=== PATIENT | female | born 1965 | race Caucasian/White ===

== ENCOUNTER 2019-05-09 09:55 | Inpatient (IN) ==
[2019-05-09] MEDS ORDERED: Isovue-370 500 ML BOTTLE IVP ONE (10:01)
[2019-05-09] MEDS ORDERED: Aspirin 81 MG TAB.CHEW PO ONE (10:01)
[2019-05-09] MEDS ORDERED: methylPREDNISolone 125 MG/2 ML VIAL IVP ONE (10:01)
[2019-05-09] MEDS: Nitroglycerin 0.4 MG TAB.SUBL SL PRN ×2 (10:14→10:29)
[2019-05-09 10:20] LABS: Basophils % 0.3 %; Hematocrit 35.8 % (35.3-44.9); Hemoglobin 12.1 g/dL (11.5-15.4); Lymphocytes # 2.3 K/mcL (0.6-4.6); Lymphocytes % 27.1 %; Mean Corpuscular HGB Conc 33.8 g/dL (31.6-35.5); Mean Corpuscular Volume 91.8 fL (83.0-100.0); Mean Platelet Volume 10.7 fL (9.4-12.4); Monocytes # 0.6 K/mcL (0.0-1.3); Monocytes % 6.4 %; Neutrophils # 5.6 K/mcL (1.6-8.9); Platelet Count 223 K/mcL (140-400); Red Cell Distribution Width 12.5 % (11.5-14.5); Segmented Neutrophils % 64.2 %; White Blood Count 8.7 K/mcL (4.3-11.1)
[2019-05-09 10:48] LABS: BUN/Creatinine Ratio 22 (6-26); Blood Urea Nitrogen 29 mg/dL (6-20); Calcium 9.5 mg/dL (8.6-10.3); Carbon Dioxide 22 mEq/L (23-29); Chloride 104 mEq/L (98-107); Glucose 161 mg/dL (70-105); Osmolality,Calculated 295 (280-300); Sodium 138 mEq/L (136-145); Troponin I < 0.03 ng/mL (< 0.04); eGFR For African Americans 51 (> 60); eGFR For Non-African Americans 42 (> 60)
[2019-05-09] MEDS ORDERED: Ondansetron 4 MG/2 ML VIAL IVP ONE (10:56)
[2019-05-09] MEDS ORDERED: 0.9 % Sodium Chloride 1,000 ML IVC ONE (11:09)
[2019-05-09] MEDS ORDERED: Azithromycin 500 MG in D5% in Water 250 ML IVPB ONE (12:07)
[2019-05-09] MEDS ORDERED: cefTRIAXone 1,000 MG in Water for inj. (sterile) 10 ML IVP ONE (12:07)
[2019-05-09 12:28] LABS: Alanine Aminotransferase 8 Units/L (7-52); Albumin 4.1 g/dL (3.5-5.7); Albumin/Globulin Ratio 1.3 (1.1-2.2); Alkaline Phosphatase 148 Units/L (34-104); Aspartate Amino Transferase 10 Units/L (13-39); Bilirubin,Indirect 0.3 mg/dL (0.0-1.2); Bilirubin,Total 0.3 mg/dL (0.3-1.0); Globulin 3.2 g/dL (2.4-3.5); Total Protein 7.3 g/dL (6.4-8.9)
[2019-05-09 12:30] LABS: INR 0.9; Prothrombin Time 10.2 Seconds (9.4-12.1)
[2019-05-09 12:34] LABS: Bilirubin,Urine Negative (Negative); Blood,Urine Negative (Negative); Clarity,Urine Clear (Clear); Color,Urine Yellow (Yellow); Glucose,Urine (UA) Normal (Normal); Ketones,Urine Negative (Negative); Leukocyte Esterase,Urine Negative (Negative); Nitrite,Urine Negative (Negative); Protein,Urine 100 mg/dL (Neg-Trace); Specific Gravity,Urine 1.028 (1.010-1.025); Urobilinogen,Urine Normal (Normal)
[2019-05-09 12:37] LABS: Bacteria,Urine None Seen per hpf (None-Few); Hyaline Casts,Urine None Seen per lpf (None-Few); Squamous Epithelial Cell,Urine Many per lpf (None-Few); WBC,Urine 0-3 per hpf (0-3)
[2019-05-09] MEDS ORDERED: *HR* Promethazine 25 MG/ML VIAL IVP ONE (13:01)
[2019-05-09] MEDS ORDERED: Naloxone 0.4 MG/ML INJ IVP PRN (14:30)
[2019-05-09] MEDS ORDERED: SUMAtriptan 6 MG/0.5 ML SQ PRN ×2 (14:33→15:36)
[2019-05-09] MEDS ORDERED: *HR* Dextrose 50 % in Water (Syg) 50 ML SYRINGE IVP PRN (14:35)
[2019-05-09] MEDS ORDERED: D5% in Water 1,000 ML IVC PRN (14:35)
[2019-05-09] MEDS ORDERED: Dextrose Gel 15 GM/37.5 ML TUBE PO PRN ×2 (14:35)
[2019-05-09] MEDS ORDERED: VALACYCLOVIR HCL 1000 MG PO SCH (14:45)
[2019-05-09] MEDS ORDERED: tiZANidine 4 MG TABLET PO SCH (15:00)
[2019-05-09 15:28] LABS: Estimated Average Glucose 151 mg/dl
[2019-05-09] MEDS: Ondansetron ODT 4 MG TAB.RAPDIS PO SCH ×2 (15:48→23:24)
[2019-05-09] MEDS: Nystatin SUSP 5 ML UD.LIQ PO SCH ×2 (16:52→21:10)
[2019-05-09] MEDS: tiZANidine 4 MG TABLET PO PRN (16:52)
[2019-05-09] MEDS: diazePAM 5 MG TABLET PO PRN ×2 (16:52→23:25)
[2019-05-09] MEDS: Doxycycline 100 MG in 0.9 % Sodium Chloride Mini Bag 100 ML IVPB SCH (16:52)
[2019-05-09] MEDS: Insulin LISPRO 300 UNITS/3 ML VIAL SQ SCH ×2 (16:56→21:10)
[2019-05-09] MEDS ORDERED: Nystatin SUSP 5 ML UD.LIQ PO SCH (17:00)
[2019-05-09] MEDS ORDERED: diazePAM 10 MG TABLET PO SCH (17:00)
[2019-05-09 19:36] LABS: Adenovirus Not Detected (Not Detect); Bordetella Pertussis Not Detected (Not Detect); Chlamydophila pneumoniae Not Detected (Not Detect); Coronavirus 229E Not Detected (Not Detect); Coronavirus HKU1 Not Detected (Not Detect); Coronavirus NL63 Not Detected (Not Detect); Coronavirus OC43 Not Detected (Not Detect); Human Metapneumovirus Not Detected (Not Detect); Human Rhinovirus/Enterovirus Not Detected (Not Detect); Influenza A Subtype 2009 H1 Not Detected (Not Detect); Influenza B Not Detected (Not Detect); Mycoplasma pneumoniae Not Detected (Not Detect); Parainfluenza Virus 1 Not Detected (Not Detect); Parainfluenza Virus 2 Not Detected (Not Detect); Parainfluenza Virus 3 Not Detected (Not Detect); Parainfluenza Virus 4 Not Detected (Not Detect); Respiratory Syncytial Virus Not Detected (Not Detect)
[2019-05-09] MEDS ORDERED: Perflutren Lipid Microsphere 1.3 ML in 0.9 % Sodium Chloride 8.7 ML IVP ONE (20:26)
[2019-05-09] MEDS ORDERED: Acetaminophen 325 MG TABLET PO PRN (21:07)
[2019-05-09] MEDS: Topiramate 100 MG TABLET PO SCH (21:09)
[2019-05-09] MEDS: Insulin DETEMIR 100 UNIT/ML X5UNITS SQ SCH (21:10)
[2019-05-10 03:46] LABS: Basophils % 0.3 %; Hematocrit 31.9 % (35.3-44.9); Hemoglobin 10.7 g/dL (11.5-15.4); Immature Granulocytes % 1.9 % (0-4); Lymphocytes # 2.1 K/mcL (0.6-4.6); Lymphocytes % 21.9 %; Mean Corpuscular HGB Conc 33.5 g/dL (31.6-35.5); Mean Corpuscular Volume 92.5 fL (83.0-100.0); Mean Platelet Volume 11.1 fL (9.4-12.4); Monocytes # 0.7 K/mcL (0.0-1.3); Monocytes % 7.2 %; Neutrophils # 6.4 K/mcL (1.6-8.9); Platelet Count 194 K/mcL (140-400); Red Blood Count 3.45 M/mcL (3.82-4.97); Red Cell Distribution Width 12.3 % (11.5-14.5); Segmented Neutrophils % 68.7 %; White Blood Count 9.4 K/mcL (4.3-11.1)
[2019-05-10 03:53] LABS: Calcium 9.1 mg/dL (8.6-10.3); Potassium 3.8 mEq/L (3.5-5.1)
[2019-05-10] MEDS: diazePAM 5 MG TABLET PO PRN ×3 (05:18→18:17)
[2019-05-10] MEDS: Doxycycline 100 MG in 0.9 % Sodium Chloride Mini Bag 100 ML IVPB SCH ×2 (05:18→17:19)
[2019-05-10] MEDS: tiZANidine 4 MG TABLET PO PRN ×2 (05:18→20:59)
[2019-05-10] MEDS: Cholecalciferol (D-3) 1,000 UNIT (25MCG) TABLET PO SCH (08:10)
[2019-05-10] MEDS: Aspirin Enteric Coated 81 MG Tablet PO SCH (08:11)
[2019-05-10] MEDS: Folic Acid 1 MG TABLET PO SCH (08:11)
[2019-05-10] MEDS: Fenofibrate 54 MG TABLET PO SCH (08:11)
[2019-05-10] MEDS: Topiramate 100 MG TABLET PO SCH ×2 (08:11→20:50)
[2019-05-10] MEDS: Insulin LISPRO 300 UNITS/3 ML VIAL SQ SCH ×4 (08:12→21:01)
[2019-05-10] MEDS: Ondansetron ODT 4 MG TAB.RAPDIS PO SCH ×2 (08:12→17:11)
[2019-05-10] MEDS: cefTRIAXone 1,000 MG in Water for inj. (sterile) 10 ML IVP SCH (08:12)
[2019-05-10] MEDS: Insulin DETEMIR 100 UNIT/ML X5UNITS SQ SCH ×2 (08:12→21:00)
[2019-05-10] MEDS: Nystatin SUSP 5 ML UD.LIQ PO SCH ×4 (08:12→20:53)
[2019-05-10] MEDS: Fluticasone Propionate Nasal 50 MCG/SPRAY BOTTLE NS SCH (10:08)
[2019-05-10] MEDS: Ringers Solution, Lactated 1,000 ML IVC SCH ×3 (10:08→23:09)
[2019-05-10] MEDS: predniSONE 20 MG TABLET PO SCH (11:57)
[2019-05-10] MEDS: Gabapentin 300 MG CAPSULE PO SCH ×2 (14:25→20:50)
[2019-05-10] MEDS: *HR* Heparin 5,000 UNIT/ML VIAL SQ SCH (17:12)
[2019-05-11 00:48] LABS: Basophils % 0.2 %; Hematocrit 31.9 % (35.3-44.9); Hemoglobin 10.6 g/dL (11.5-15.4); Lymphocytes # 1.9 K/mcL (0.6-4.6); Lymphocytes % 21.2 %; Mean Corpuscular HGB Conc 33.2 g/dL (31.6-35.5); Mean Corpuscular Hemoglobin 30.9 pg (28.0-33.3); Monocytes # 0.6 K/mcL (0.0-1.3); Monocytes % 6.2 %; Neutrophils # 6.4 K/mcL (1.6-8.9); Platelet Count 191 K/mcL (140-400); Red Blood Count 3.43 M/mcL (3.82-4.97); Segmented Neutrophils % 70.4 %; White Blood Count 9.1 K/mcL (4.3-11.1)
[2019-05-11 01:08] LABS: Calcium 8.7 mg/dL (8.6-10.3); Potassium 4.1 mEq/L (3.5-5.1)
[2019-05-11] MEDS: Ondansetron ODT 4 MG TAB.RAPDIS PO SCH ×3 (03:06→16:07)
[2019-05-11] MEDS: *HR* Heparin 5,000 UNIT/ML VIAL SQ SCH ×2 (06:00→17:24)
[2019-05-11] MEDS: Doxycycline 100 MG in 0.9 % Sodium Chloride Mini Bag 100 ML IVPB SCH (06:00)
[2019-05-11] MEDS: Ringers Solution, Lactated 1,000 ML IVC SCH (07:09)
[2019-05-11] MEDS: Insulin DETEMIR 100 UNIT/ML X5UNITS SQ SCH (08:11)
[2019-05-11] MEDS: Fluticasone Propionate Nasal 50 MCG/SPRAY BOTTLE NS SCH (08:12)
[2019-05-11] MEDS: cefTRIAXone 1,000 MG in Water for inj. (sterile) 10 ML IVP SCH (08:12)
[2019-05-11] MEDS: Insulin LISPRO 300 UNITS/3 ML VIAL SQ SCH ×5 (08:13→21:12)
[2019-05-11] MEDS: Nystatin SUSP 5 ML UD.LIQ PO SCH ×4 (08:15→21:08)
[2019-05-11] MEDS: Aspirin Enteric Coated 81 MG Tablet PO SCH (08:16)
[2019-05-11] MEDS: Gabapentin 300 MG CAPSULE PO SCH ×3 (08:16→21:09)
[2019-05-11] MEDS: Cholecalciferol (D-3) 1,000 UNIT (25MCG) TABLET PO SCH (08:16)
[2019-05-11] MEDS: predniSONE 20 MG TABLET PO SCH (08:16)
[2019-05-11] MEDS: amLODIPine 5 MG TABLET PO SCH (08:16)
[2019-05-11] MEDS: Fenofibrate 54 MG TABLET PO SCH (08:16)
[2019-05-11] MEDS: Topiramate 100 MG TABLET PO SCH ×2 (08:16→21:09)
[2019-05-11] MEDS: Folic Acid 1 MG TABLET PO SCH (08:16)
[2019-05-11] MEDS: diazePAM 5 MG TABLET PO PRN ×3 (08:21→23:15)
[2019-05-11] MEDS: tiZANidine 4 MG TABLET PO PRN ×2 (11:54→21:10)
[2019-05-11] MEDS: 0.9 % Sodium Chloride 1,000 ML IVC SCH ×2 (12:02→23:15)
[2019-05-11 13:52] LABS: Bilirubin,Urine Negative (Negative); Blood,Urine Negative (Negative); Clarity,Urine Clear (Clear); Color,Urine Yellow (Yellow); Glucose,Urine (UA) Normal (Normal); Ketones,Urine Negative (Negative); Leukocyte Esterase,Urine Negative (Negative); Nitrite,Urine Negative (Negative); PH,Urine 6.5 pH Units (5.0-8.0); Protein,Urine 30 mg/dL (Neg-Trace); Urobilinogen,Urine Normal (Normal)
[2019-05-11 13:55] LABS: Bacteria,Urine None Seen per hpf (None-Few); Hyaline Casts,Urine None Seen per lpf (None-Few); Squamous Epithelial Cell,Urine Moderate per lpf (None-Few); WBC,Urine 0-3 per hpf (0-3)
[2019-05-11 14:00] LABS: Protein/Creatinine Ratio,Urine 0.74 mg/mg (0.00-0.20); Sodium, Urine 113.1 mEq/L
[2019-05-11] MEDS ORDERED: Insulin Human Regular 10 UNIT in 0.9 % Sodium Chloride 10 ML IV ONE (15:29)
[2019-05-11] MEDS ORDERED: Insulin DETEMIR 100 UNIT/ML X5UNITS SQ SCH (21:00)
[2019-05-11] MEDS: Cefdinir 300 MG CAPSULE PO SCH (21:09)
[2019-05-11] MEDS: Doxycycline 100 MG CAPSULE PO SCH (21:10)
[2019-05-12 02:58] LABS: Basophils % 0.2 %; Eosinophils % 0.1 %; Hematocrit 30.6 % (35.3-44.9); Hemoglobin 10.2 g/dL (11.5-15.4); Immature Granulocytes % 2.7 % (0-4); Lymphocytes # 2.5 K/mcL (0.6-4.6); Lymphocytes % 27.9 %; Mean Corpuscular HGB Conc 33.3 g/dL (31.6-35.5); Mean Corpuscular Hemoglobin 31.2 pg (28.0-33.3); Mean Corpuscular Volume 93.6 fL (83.0-100.0); Mean Platelet Volume 11.1 fL (9.4-12.4); Monocytes # 0.5 K/mcL (0.0-1.3); Monocytes % 5.7 %; Neutrophils # 5.6 K/mcL (1.6-8.9); Platelet Count 186 K/mcL (140-400); Red Blood Count 3.27 M/mcL (3.82-4.97); Red Cell Distribution Width 11.9 % (11.5-14.5); Segmented Neutrophils % 63.4 %; White Blood Count 8.8 K/mcL (4.3-11.1)
[2019-05-12 03:20] LABS: Calcium 8.7 mg/dL (8.6-10.3)
[2019-05-12 03:25] LABS: Albumin 3.6 g/dL (3.5-5.7); Magnesium 1.9 mg/dL (1.6-2.6); Phosphorous 2.9 mg/dL (2.7-4.5); Uric Acid 7.9 mg/dL (2.3-7.6)
[2019-05-12 04:50] LABS: Complement C3 144 mg/dL (87-200)
[2019-05-12] MEDS: Ondansetron ODT 4 MG TAB.RAPDIS PO SCH ×4 (05:31→23:42)
[2019-05-12] MEDS: *HR* Heparin 5,000 UNIT/ML VIAL SQ SCH ×2 (05:31→17:46)
[2019-05-12] MEDS: Fluticasone Propionate Nasal 50 MCG/SPRAY BOTTLE NS SCH (08:19)
[2019-05-12] MEDS: Insulin LISPRO 300 UNITS/3 ML VIAL SQ SCH ×7 (08:20→20:59)
[2019-05-12] MEDS: Cholecalciferol (D-3) 1,000 UNIT (25MCG) TABLET PO SCH (08:22)
[2019-05-12] MEDS: Nystatin SUSP 5 ML UD.LIQ PO SCH ×4 (08:22→20:57)
[2019-05-12] MEDS: Doxycycline 100 MG CAPSULE PO SCH ×2 (08:22→20:57)
[2019-05-12] MEDS: Topiramate 100 MG TABLET PO SCH ×2 (08:23→20:58)
[2019-05-12] MEDS: Folic Acid 1 MG TABLET PO SCH (08:23)
[2019-05-12] MEDS: predniSONE 20 MG TABLET PO SCH (08:23)
[2019-05-12] MEDS: Aspirin Enteric Coated 81 MG Tablet PO SCH (08:23)
[2019-05-12] MEDS: amLODIPine 5 MG TABLET PO SCH (08:23)
[2019-05-12] MEDS: Cefdinir 300 MG CAPSULE PO SCH ×2 (08:23→20:57)
[2019-05-12] MEDS: Gabapentin 300 MG CAPSULE PO SCH ×3 (08:23→20:58)
[2019-05-12] MEDS: diazePAM 5 MG TABLET PO PRN ×3 (08:32→20:58)
[2019-05-12] MEDS: Insulin DETEMIR 100 UNIT/ML X5UNITS SQ SCH ×2 (09:59→20:58)
[2019-05-12] MEDS ORDERED: *HR* HYDROcodone/Acet 5/325 mg TABLET PO ONE (18:54)
[2019-05-12] MEDS ORDERED: *HR* HYDROcodone/Acet 5/325 mg TABLET PO STA (18:57)
[2019-05-13] MEDS: diazePAM 5 MG TABLET PO PRN ×4 (01:00→21:26)
[2019-05-13] MEDS: *HR* Heparin 5,000 UNIT/ML VIAL SQ SCH ×2 (05:39→18:51)
[2019-05-13] MEDS ORDERED: Acetaminophen IV 500 MG/50 ML INFUS..BTL IVPB ONE (06:07)
[2019-05-13 06:55] LABS: Basophils # 0.1 K/mcL (0.0-0.2); Basophils % 0.5 %; Eosinophils % 0.1 %; Hematocrit 31.4 % (35.3-44.9); Hemoglobin 10.3 g/dL (11.5-15.4); Immature Granulocytes % 4.3 % (0-4); Lymphocytes # 3.3 K/mcL (0.6-4.6); Lymphocytes % 30.2 %; Mean Corpuscular HGB Conc 32.8 g/dL (31.6-35.5); Mean Corpuscular Volume 91.5 fL (83.0-100.0); Mean Platelet Volume 11.2 fL (9.4-12.4); Monocytes # 0.7 K/mcL (0.0-1.3); Neutrophils # 6.4 K/mcL (1.6-8.9); Platelet Count 208 K/mcL (140-400); Red Blood Count 3.43 M/mcL (3.82-4.97); Red Cell Distribution Width 12.3 % (11.5-14.5); Segmented Neutrophils % 58.9 %; White Blood Count 10.8 K/mcL (4.3-11.1)
[2019-05-13 07:17] LABS: Calcium 8.7 mg/dL (8.6-10.3)
[2019-05-13] MEDS: Nystatin SUSP 5 ML UD.LIQ PO SCH ×4 (07:39→21:26)
[2019-05-13] MEDS: Cefdinir 300 MG CAPSULE PO SCH ×2 (07:39→21:27)
[2019-05-13] MEDS: Folic Acid 1 MG TABLET PO SCH (07:40)
[2019-05-13] MEDS: Topiramate 100 MG TABLET PO SCH ×2 (07:40→21:27)
[2019-05-13] MEDS: Gabapentin 300 MG CAPSULE PO SCH ×3 (07:40→21:27)
[2019-05-13] MEDS: Aspirin Enteric Coated 81 MG Tablet PO SCH (07:40)
[2019-05-13] MEDS: predniSONE 20 MG TABLET PO SCH (07:41)
[2019-05-13] MEDS: amLODIPine 5 MG TABLET PO SCH (07:41)
[2019-05-13] MEDS: Ondansetron ODT 4 MG TAB.RAPDIS PO SCH ×2 (07:41→16:49)
[2019-05-13] MEDS: Doxycycline 100 MG CAPSULE PO SCH ×2 (07:42→21:26)
[2019-05-13] MEDS: Insulin LISPRO 300 UNITS/3 ML VIAL SQ SCH ×7 (07:44→21:59)
[2019-05-13] MEDS: Fluticasone Propionate Nasal 50 MCG/SPRAY BOTTLE NS SCH (07:44)
[2019-05-13] MEDS: Insulin DETEMIR 100 UNIT/ML X5UNITS SQ SCH ×2 (07:48→21:58)
[2019-05-13] MEDS: Cholecalciferol (D-3) 1,000 UNIT (25MCG) TABLET PO SCH (08:08)
[2019-05-13] MEDS ORDERED: Metoclopramide 10 MG/2 ML VIAL IVP ONE (10:37)
[2019-05-13] MEDS: Acetaminophen 325 MG TABLET PO PRN ×2 (10:37→16:49)
[2019-05-13] MEDS: tiZANidine 4 MG TABLET PO PRN (11:35)
[2019-05-13] MEDS: Albuterol 2.5 MG/3 ML NEBULIZER IH SCH ×3 (16:20→23:31)
[2019-05-13] MEDS ORDERED: *HR* HYDROcodone/Acet 5/325 mg TABLET PO ONE (17:45)
[2019-05-13 19:59] LABS: Kappa Qnt Free Light Chains 3.92 mg/dL (0.33-1.94); Lambda Qnt Free Light Chains 2.6 mg/dL (0.57-2.63)
[2019-05-13] MEDS: tiZANidine 4 MG TABLET PO SCH (21:26)
[2019-05-14] MEDS: Albuterol 2.5 MG/3 ML NEBULIZER IH SCH ×5 (03:39→19:49)
[2019-05-14] MEDS: diazePAM 5 MG TABLET PO PRN ×4 (03:46→21:46)
[2019-05-14] MEDS: Ondansetron ODT 4 MG TAB.RAPDIS PO SCH ×4 (03:48→23:29)
[2019-05-14] MEDS: *HR* Heparin 5,000 UNIT/ML VIAL SQ SCH ×2 (03:50→17:53)
[2019-05-14 06:21] LABS: Basophils % 0.3 %; Eosinophils % 0.2 %; Hematocrit 30.8 % (35.3-44.9); Hemoglobin 10.2 g/dL (11.5-15.4); Immature Granulocytes % 4.8 % (0-4); Lymphocytes # 3.2 K/mcL (0.6-4.6); Lymphocytes % 30.1 %; Mean Corpuscular HGB Conc 33.1 g/dL (31.6-35.5); Mean Corpuscular Hemoglobin 30.9 pg (28.0-33.3); Mean Corpuscular Volume 93.3 fL (83.0-100.0); Mean Platelet Volume 11.3 fL (9.4-12.4); Monocytes # 0.7 K/mcL (0.0-1.3); Monocytes % 6.5 %; Neutrophils # 6.3 K/mcL (1.6-8.9); Platelet Count 200 K/mcL (140-400); Red Cell Distribution Width 12.4 % (11.5-14.5); Segmented Neutrophils % 58.1 %; White Blood Count 10.8 K/mcL (4.3-11.1)
[2019-05-14 06:43] LABS: BUN/Creatinine Ratio 20 (6-26); Blood Urea Nitrogen 45 mg/dL (6-20); Carbon Dioxide 24 mEq/L (23-29); Chloride 108 mEq/L (98-107); Glucose 206 mg/dL (70-105); Osmolality,Calculated 312 (280-300); Potassium 3.8 mEq/L (3.5-5.1); Sodium 142 mEq/L (136-145); eGFR For African Americans 27 (> 60); eGFR For Non-African Americans 22 (> 60)
[2019-05-14] MEDS: Insulin DETEMIR 100 UNIT/ML X5UNITS SQ SCH ×2 (08:02→21:45)
[2019-05-14] MEDS: Insulin LISPRO 300 UNITS/3 ML VIAL SQ SCH ×7 (08:03→21:45)
[2019-05-14] MEDS: Nystatin SUSP 5 ML UD.LIQ PO SCH ×4 (08:04→21:46)
[2019-05-14] MEDS: Fluticasone Propionate Nasal 50 MCG/SPRAY BOTTLE NS SCH (08:10)
[2019-05-14] MEDS: predniSONE 20 MG TABLET PO SCH (08:12)
[2019-05-14] MEDS: Doxycycline 100 MG CAPSULE PO SCH ×2 (08:14→21:46)
[2019-05-14] MEDS: Cholecalciferol (D-3) 1,000 UNIT (25MCG) TABLET PO SCH (08:14)
[2019-05-14] MEDS: Topiramate 100 MG TABLET PO SCH ×2 (08:15→21:45)
[2019-05-14] MEDS: Folic Acid 1 MG TABLET PO SCH (08:15)
[2019-05-14] MEDS: amLODIPine 5 MG TABLET PO SCH (08:15)
[2019-05-14] MEDS: tiZANidine 4 MG TABLET PO SCH ×3 (08:15→21:45)
[2019-05-14] MEDS: Cefdinir 300 MG CAPSULE PO SCH ×2 (08:36→21:45)
[2019-05-14] MEDS: Gabapentin 400 MG CAPSULE PO SCH ×3 (08:36→21:46)
[2019-05-14] MEDS: Acetaminophen 325 MG TABLET PO PRN (10:04)
[2019-05-14 10:19] LABS: Rheumatoid Factor 12 IU/mL (Less than 14)
[2019-05-14 10:43] LABS: ANA IgG by ELISA DETECTED (None Detected)
[2019-05-14 10:44] LABS: GBM IgG Multiplex Bead Assay 0 AU/mL (0-19); Glomerular Basement Memb IgG NEGATIVE (Negative); Serine Protease-3 Antibody 14 AU/mL (0-19)
[2019-05-14 11:01] LABS: Alpha 2 Globulin (PEP) 0.91 g/dL (0.48-1.05)
[2019-05-14 11:02] LABS: Amylase 22 Units/L (29-103); C-Reactive Protein < 5 mg/L (Less than 10); Lipase 25 Units/L (11-82)
[2019-05-14 11:11] LABS: Hepatitis B Surface Antigen Nonreactive (Nonreactive)
[2019-05-14 11:40] LABS: Hepatitis B Core IgM Nonreactive (Nonreactive)
[2019-05-14 11:41] LABS: Hepatitis C Virus Antibody Nonreactive (Nonreactive)
[2019-05-14 11:42] LABS: Hepatitis A Antibody IgM Nonreactive (Nonreactive)
[2019-05-14 13:42] LABS: IFE Reflexed NOT DONE
[2019-05-14] MEDS ORDERED: methylPREDNISolone 125 MG/2 ML VIAL IVP SCH (14:45)
[2019-05-15] MEDS: Albuterol 2.5 MG/3 ML NEBULIZER IH SCH ×6 (00:05→19:29)
[2019-05-15 01:01] LABS: Hematocrit 32.6 % (35.3-44.9); Hemoglobin 11.1 g/dL (11.5-15.4); Mean Corpuscular Volume 91.1 fL (83.0-100.0); Mean Platelet Volume 11.4 fL (9.4-12.4); Platelet Count 213 K/mcL (140-400); Red Blood Count 3.58 M/mcL (3.82-4.97); Red Cell Distribution Width 12.2 % (11.5-14.5)
[2019-05-15 01:13] LABS: Prothrombin Time 11.4 Seconds (9.4-12.1)
[2019-05-15 01:25] LABS: Lymphocytes # 0.6 K/mcL (0.6-4.6); Neutrophils # 9.2 K/mcL (1.6-8.9)
[2019-05-15 02:25] LABS: Albumin 3.9 g/dL (3.5-5.7); Albumin/Globulin Ratio 1.4 (1.1-2.2); Bilirubin,Total 0.2 mg/dL (0.3-1.0); Calcium 8.9 mg/dL (8.6-10.3); Globulin 2.8 g/dL (2.4-3.5); Total Protein 6.7 g/dL (6.4-8.9)
[2019-05-15] MEDS: hydrOXYzine pamoate 25 MG CAPSULE PO PRN ×2 (04:20→12:05)
[2019-05-15] MEDS ORDERED: Insulin DETEMIR 100 UNIT/ML X5UNITS SQ ONE (04:58)
[2019-05-15] MEDS: *HR* Heparin 5,000 UNIT/ML VIAL SQ SCH ×2 (06:20→16:45)
[2019-05-15] MEDS: Acetaminophen 325 MG TABLET PO PRN (06:30)
[2019-05-15] MEDS: diazePAM 5 MG TABLET PO PRN ×3 (06:30→22:52)
[2019-05-15] MEDS: Insulin LISPRO 300 UNITS/3 ML VIAL SQ SCH ×8 (08:24→22:52)
[2019-05-15] MEDS: Insulin DETEMIR 100 UNIT/ML X5UNITS SQ SCH ×2 (08:24→21:05)
[2019-05-15] MEDS: Cefdinir 300 MG CAPSULE PO SCH ×2 (08:25→22:52)
[2019-05-15] MEDS: Doxycycline 100 MG CAPSULE PO SCH ×2 (08:25→22:51)
[2019-05-15] MEDS: Topiramate 100 MG TABLET PO SCH ×2 (08:25→22:52)
[2019-05-15] MEDS: tiZANidine 4 MG TABLET PO SCH ×3 (08:25→22:52)
[2019-05-15] MEDS: Folic Acid 1 MG TABLET PO SCH (08:25)
[2019-05-15] MEDS: Ondansetron ODT 4 MG TAB.RAPDIS PO SCH ×3 (08:26→15:58)
[2019-05-15] MEDS: Cholecalciferol (D-3) 1,000 UNIT (25MCG) TABLET PO SCH (08:26)
[2019-05-15] MEDS: Nystatin SUSP 5 ML UD.LIQ PO SCH ×4 (08:26→22:52)
[2019-05-15] MEDS: amLODIPine 5 MG TABLET PO SCH (08:26)
[2019-05-15] MEDS: Fluticasone Propionate Nasal 50 MCG/SPRAY BOTTLE NS SCH (08:27)
[2019-05-15] MEDS ORDERED: Insulin Regular, Human 100 UNIT/ML SQ ONE ×2 (10:56→17:23)
[2019-05-15] MEDS: Sennosides/Docusate Sodium TABLET PO SCH ×2 (12:00→22:51)
[2019-05-15 14:21] LABS: ANA HEp-2 IgG IFA DETECTED (<1:80)
[2019-05-15 14:22] LABS: Anti Nuclear Ab Pattern HOMOGENEOUS
[2019-05-15] MEDS ORDERED: Ringers Solution, Lactated 500 ML IVC ONE ×2 (17:24→18:15)
[2019-05-15] MEDS: *HR* Promethazine 25 MG/ML VIAL IVP PRN (20:50)
[2019-05-15] MEDS ORDERED: *HR* OxyCODONE Immed Rel 5 MG TABLET PO ONE (22:28)
[2019-05-15] MEDS: Gabapentin 400 MG CAPSULE PO SCH (22:51)
[2019-05-16] MEDS: Albuterol 2.5 MG/3 ML NEBULIZER IH SCH ×7 (00:06→23:27)
[2019-05-16] MEDS: Insulin LISPRO 300 UNITS/3 ML VIAL SQ SCH ×6 (00:35→23:58)
[2019-05-16] MEDS: hydrOXYzine pamoate 25 MG CAPSULE PO PRN ×3 (00:35→21:35)
[2019-05-16] MEDS: Ondansetron ODT 4 MG TAB.RAPDIS PO SCH ×4 (00:35→23:15)
[2019-05-16] MEDS: diazePAM 5 MG TABLET PO PRN ×3 (06:24→18:24)
[2019-05-16] MEDS: *HR* Heparin 5,000 UNIT/ML VIAL SQ SCH ×2 (06:24→17:21)
[2019-05-16] MEDS: *HR* Promethazine 25 MG/ML VIAL IVP PRN ×3 (06:34→22:37)
[2019-05-16 06:39] LABS: Basophils % 0.1 %; Hematocrit 31.1 % (35.3-44.9); Hemoglobin 10.3 g/dL (11.5-15.4); Immature Granulocytes % 3.4 % (0-4); Lymphocytes % 14.9 %; Mean Corpuscular HGB Conc 33.1 g/dL (31.6-35.5); Mean Corpuscular Hemoglobin 30.8 pg (28.0-33.3); Mean Corpuscular Volume 93.1 fL (83.0-100.0); Mean Platelet Volume 11.3 fL (9.4-12.4); Monocytes # 0.8 K/mcL (0.0-1.3); Monocytes % 5.9 %; Neutrophils # 9.9 K/mcL (1.6-8.9); Platelet Count 202 K/mcL (140-400); Red Blood Count 3.34 M/mcL (3.82-4.97); Red Cell Distribution Width 12.5 % (11.5-14.5); Segmented Neutrophils % 75.7 %; White Blood Count 13.1 K/mcL (4.3-11.1)
[2019-05-16] MEDS: Gabapentin 400 MG CAPSULE PO SCH ×2 (08:19→21:14)
[2019-05-16] MEDS: tiZANidine 4 MG TABLET PO SCH ×3 (08:19→21:14)
[2019-05-16] MEDS: Sennosides/Docusate Sodium TABLET PO SCH ×2 (08:19→21:14)
[2019-05-16] MEDS: Nystatin SUSP 5 ML UD.LIQ PO SCH ×2 (08:19→11:50)
[2019-05-16] MEDS: Folic Acid 1 MG TABLET PO SCH (08:19)
[2019-05-16] MEDS: amLODIPine 5 MG TABLET PO SCH (08:19)
[2019-05-16] MEDS: Topiramate 100 MG TABLET PO SCH ×2 (08:19→21:14)
[2019-05-16] MEDS: Cholecalciferol (D-3) 1,000 UNIT (25MCG) TABLET PO SCH (08:19)
[2019-05-16] MEDS: Fluticasone Propionate Nasal 50 MCG/SPRAY BOTTLE NS SCH (08:20)
[2019-05-16] MEDS: Insulin DETEMIR 100 UNIT/ML X5UNITS SQ SCH (08:20)
[2019-05-16 08:53] LABS: Calcium 9.3 mg/dL (8.6-10.3); Potassium 4.2 mEq/L (3.5-5.1)
[2019-05-16] MEDS ORDERED: METHYLPREDNISOLONE IVPB ONE ×2 (09:00→14:15)
[2019-05-16] MEDS ORDERED: SODIUM CHLORIDE 0.9% IVPB ONE ×2 (09:00→14:15)
[2019-05-16] MEDS: Insulin Human Regular 100 UNIT in 0.9 % Sodium Chloride 100 ML IVC SCH (09:55)
[2019-05-16] MEDS: Acetaminophen 325 MG TABLET PO PRN (14:08)
[2019-05-17 01:37] LABS: Basophils % 0.2 %; Hematocrit 30.9 % (35.3-44.9); Hemoglobin 10.3 g/dL (11.5-15.4); Immature Granulocytes % 4.2 % (0-4); Lymphocytes % 10.8 %; Mean Corpuscular HGB Conc 33.3 g/dL (31.6-35.5); Mean Corpuscular Hemoglobin 31.2 pg (28.0-33.3); Mean Corpuscular Volume 93.6 fL (83.0-100.0); Mean Platelet Volume 11.4 fL (9.4-12.4); Monocytes # 0.2 K/mcL (0.0-1.3); Monocytes % 2.1 %; Neutrophils # 7.5 K/mcL (1.6-8.9); Platelet Count 200 K/mcL (140-400); Segmented Neutrophils % 82.7 %; White Blood Count 9.1 K/mcL (4.3-11.1)
[2019-05-17 02:20] LABS: Calcium 8.9 mg/dL (8.6-10.3); Potassium 4.6 mEq/L (3.5-5.1)
[2019-05-17] MEDS: Albuterol 2.5 MG/3 ML NEBULIZER IH SCH ×6 (03:10→23:36)
[2019-05-17] MEDS: Acetaminophen 325 MG TABLET PO PRN (04:04)
[2019-05-17] MEDS: Insulin LISPRO 300 UNITS/3 ML VIAL SQ SCH ×6 (04:05→16:35)
[2019-05-17] MEDS: *HR* Heparin 5,000 UNIT/ML VIAL SQ SCH ×2 (05:18→16:35)
[2019-05-17] MEDS: diazePAM 5 MG TABLET PO PRN ×2 (05:24→12:04)
[2019-05-17] MEDS ORDERED: D5% in Water 1,000 ML IVC PRN (08:59)
[2019-05-17] MEDS ORDERED: Insulin DETEMIR 100 UNIT/ML X5UNITS SQ SCH (09:00)
[2019-05-17] MEDS: Gabapentin 400 MG CAPSULE PO SCH ×2 (09:10→19:51)
[2019-05-17] MEDS: Sennosides/Docusate Sodium TABLET PO SCH ×3 (09:10→19:50)
[2019-05-17] MEDS: Cholecalciferol (D-3) 1,000 UNIT (25MCG) TABLET PO SCH (09:10)
[2019-05-17] MEDS: predniSONE 20 MG TABLET PO SCH (09:11)
[2019-05-17] MEDS: Ondansetron ODT 4 MG TAB.RAPDIS PO SCH ×3 (09:11→23:51)
[2019-05-17] MEDS: tiZANidine 4 MG TABLET PO SCH ×3 (09:11→19:50)
[2019-05-17] MEDS: Folic Acid 1 MG TABLET PO SCH (09:12)
[2019-05-17] MEDS: amLODIPine 5 MG TABLET PO SCH (09:12)
[2019-05-17] MEDS: Fluticasone Propionate Nasal 50 MCG/SPRAY BOTTLE NS SCH (09:12)
[2019-05-17] MEDS: Topiramate 100 MG TABLET PO SCH ×2 (09:16→19:50)
[2019-05-17] MEDS: Insulin Human Regular 100 UNIT in 0.9 % Sodium Chloride 100 ML IVC SCH (10:30)
[2019-05-17] MEDS: *HR* Promethazine 25 MG/ML VIAL IVP PRN ×2 (12:03→19:53)
[2019-05-17] MEDS: hydrOXYzine pamoate 25 MG CAPSULE PO PRN ×2 (12:04→23:51)
[2019-05-17] MEDS ORDERED: *HR* HYDROcodone/Acet 5/325 mg TABLET PO ONE (16:03)
[2019-05-17] MEDS ORDERED: Insulin LISPRO 300 UNITS/3 ML VIAL SQ SCH (21:00)
[2019-05-18] MEDS: Albuterol 2.5 MG/3 ML NEBULIZER IH SCH ×6 (03:51→23:27)
[2019-05-18] MEDS: diazePAM 5 MG TABLET PO PRN ×3 (04:03→20:13)
[2019-05-18] MEDS: *HR* Heparin 5,000 UNIT/ML VIAL SQ SCH ×2 (05:37→17:54)
[2019-05-18 08:24] LABS: Calcium 8.7 mg/dL (8.6-10.3)
[2019-05-18] MEDS ORDERED: methylPREDNISolone 125 MG/2 ML VIAL IVP SCH (09:00)
[2019-05-18] MEDS ORDERED: Insulin DETEMIR 100 UNIT/ML X5UNITS SQ SCH (09:00)
[2019-05-18] MEDS: Insulin LISPRO 300 UNITS/3 ML VIAL SQ SCH ×8 (09:02→23:30)
[2019-05-18] MEDS: Fluticasone Propionate Nasal 50 MCG/SPRAY BOTTLE NS SCH (09:03)
[2019-05-18] MEDS: Folic Acid 1 MG TABLET PO SCH (09:04)
[2019-05-18] MEDS: Topiramate 100 MG TABLET PO SCH ×2 (09:04→20:13)
[2019-05-18] MEDS: Gabapentin 400 MG CAPSULE PO SCH ×2 (09:04→20:14)
[2019-05-18] MEDS: predniSONE 20 MG TABLET PO SCH (09:04)
[2019-05-18] MEDS: tiZANidine 4 MG TABLET PO SCH ×3 (09:05→20:13)
[2019-05-18] MEDS: amLODIPine 5 MG TABLET PO SCH (09:05)
[2019-05-18] MEDS: Fenofibrate 54 MG TABLET PO SCH (09:05)
[2019-05-18] MEDS: Sennosides/Docusate Sodium TABLET PO SCH ×2 (09:06→20:13)
[2019-05-18] MEDS: Ondansetron ODT 4 MG TAB.RAPDIS PO SCH ×2 (09:06→15:45)
[2019-05-18] MEDS: Cholecalciferol (D-3) 1,000 UNIT (25MCG) TABLET PO SCH (09:06)
[2019-05-18 10:28] LABS: Hepatitis B Core Ab Total NEGATIVE (Negative); Ribonucleic Protein IgG-Sm/RNP 3 AU/mL (0-40); SSA 52 (Anti-RO) Antibody 0 AU/mL (0-40); SSA 60 (Anti-RO) Antibody 0 AU/mL (0-40)
[2019-05-18] MEDS: *HR* Promethazine 25 MG/ML VIAL IVP PRN (12:43)
[2019-05-18] MEDS: hydrOXYzine pamoate 25 MG CAPSULE PO PRN ×2 (12:47→20:13)
[2019-05-18 18:55] LABS: APTT (LE Anticoag) 36 sec (32-48); Diluted Russell Viper Venom 26 sec (33-44); PT (LE-Anticoag) 13.1 sec (12.0-15.5)
[2019-05-18 20:37] LABS: QuantiFERON Mitogen minus NIL 0.16 IU/mL
[2019-05-18] MEDS: Nystatin SUSP 5 ML UD.LIQ BC SCH (21:11)
[2019-05-18] MEDS: Acetaminophen 325 MG TABLET PO PRN (21:11)
[2019-05-19] MEDS: Ondansetron ODT 4 MG TAB.RAPDIS PO SCH ×3 (00:19→14:36)
[2019-05-19] MEDS: Insulin LISPRO 300 UNITS/3 ML VIAL SQ SCH ×6 (00:30→21:45)
[2019-05-19] MEDS: Albuterol 2.5 MG/3 ML NEBULIZER IH SCH ×6 (04:16→23:44)
[2019-05-19 06:44] LABS: Calcium 8.8 mg/dL (8.6-10.3); Potassium 3.7 mEq/L (3.5-5.1)
[2019-05-19] MEDS ORDERED: Insulin LISPRO 300 UNITS/3 ML VIAL SQ SCH ×2 (08:00→12:00)
[2019-05-19] MEDS: predniSONE 20 MG TABLET PO SCH (08:53)
[2019-05-19] MEDS: Gabapentin 400 MG CAPSULE PO SCH ×2 (08:54→21:44)
[2019-05-19] MEDS: Sennosides/Docusate Sodium TABLET PO SCH ×2 (08:54→21:44)
[2019-05-19] MEDS: tiZANidine 4 MG TABLET PO SCH ×3 (08:55→21:44)
[2019-05-19] MEDS: Topiramate 100 MG TABLET PO SCH ×2 (08:55→21:44)
[2019-05-19] MEDS: Cholecalciferol (D-3) 1,000 UNIT (25MCG) TABLET PO SCH (08:55)
[2019-05-19] MEDS: Fluticasone Propionate Nasal 50 MCG/SPRAY BOTTLE NS SCH (08:56)
[2019-05-19] MEDS: Nystatin SUSP 5 ML UD.LIQ BC SCH ×2 (08:56→11:55)
[2019-05-19] MEDS: Folic Acid 1 MG TABLET PO SCH (08:56)
[2019-05-19] MEDS: amLODIPine 5 MG TABLET PO SCH (08:56)
[2019-05-19] MEDS: diazePAM 5 MG TABLET PO PRN ×2 (09:00→14:39)
[2019-05-19 09:46] LABS: QuantiFERON NIL 0.01 IU/mL; QuantiFERON-TB Gold In-Tube INDETERMINATE
[2019-05-19] MEDS ORDERED: Stomatitis Mixture 5 ML UDC PO PRN (14:37)
[2019-05-19] MEDS: *HR* Heparin 5,000 UNIT/ML VIAL SQ SCH (16:23)
[2019-05-19] MEDS ORDERED: Insulin DETEMIR 100 UNIT/ML X5UNITS SQ SCH (21:00)
[2019-05-19] MEDS: hydrOXYzine pamoate 25 MG CAPSULE PO PRN (21:44)
[2019-05-20] MEDS: Ondansetron ODT 4 MG TAB.RAPDIS PO SCH ×3 (00:14→15:28)
[2019-05-20] MEDS: Albuterol 2.5 MG/3 ML NEBULIZER IH SCH (04:18)
[2019-05-20] MEDS: diazePAM 5 MG TABLET PO PRN ×3 (04:38→21:52)
[2019-05-20] MEDS ORDERED: Albuterol 2.5 MG/3 ML NEBULIZER IH PRN (04:55)
[2019-05-20] MEDS: hydrOXYzine pamoate 25 MG CAPSULE PO PRN ×2 (05:58→16:48)
[2019-05-20] MEDS: *HR* Heparin 5,000 UNIT/ML VIAL SQ SCH ×2 (05:58→18:27)
[2019-05-20 07:06] LABS: Calcium 8.7 mg/dL (8.6-10.3); Potassium 4.1 mEq/L (3.5-5.1)
[2019-05-20] MEDS: Gabapentin 400 MG CAPSULE PO SCH ×2 (07:48→21:51)
[2019-05-20] MEDS: amLODIPine 5 MG TABLET PO SCH (07:48)
[2019-05-20] MEDS: Topiramate 100 MG TABLET PO SCH ×2 (07:48→21:51)
[2019-05-20] MEDS: tiZANidine 4 MG TABLET PO SCH ×3 (07:49→21:52)
[2019-05-20] MEDS: predniSONE 20 MG TABLET PO SCH (07:49)
[2019-05-20] MEDS: Cholecalciferol (D-3) 1,000 UNIT (25MCG) TABLET PO SCH (07:50)
[2019-05-20] MEDS: Folic Acid 1 MG TABLET PO SCH (07:50)
[2019-05-20] MEDS: Insulin LISPRO 300 UNITS/3 ML VIAL SQ SCH ×4 (07:50→21:52)
[2019-05-20] MEDS: Sennosides/Docusate Sodium TABLET PO SCH ×2 (07:50→21:42)
[2019-05-20] MEDS: Fluticasone Propionate Nasal 50 MCG/SPRAY BOTTLE NS SCH (09:53)
[2019-05-20] MEDS: Insulin DETEMIR 100 UNIT/ML X5UNITS SQ SCH ×2 (09:56→21:51)
[2019-05-20] MEDS ORDERED: Insulin LISPRO 300 UNITS/3 ML VIAL SQ SCH (18:15)
[2019-05-21] MEDS: Ondansetron ODT 4 MG TAB.RAPDIS PO SCH ×3 (01:01→16:29)
[2019-05-21] MEDS: hydrOXYzine pamoate 25 MG CAPSULE PO PRN ×2 (01:01→16:29)
[2019-05-21] MEDS: diazePAM 5 MG TABLET PO PRN ×2 (06:06→12:46)
[2019-05-21 06:53] LABS: Potassium 3.7 mEq/L (3.5-5.1)
[2019-05-21] MEDS ORDERED: *HR* LORazepam 2 MG/ML VIAL IVP ONE (10:01)
[2019-05-21] MEDS: amLODIPine 5 MG TABLET PO SCH (10:13)
[2019-05-21] MEDS: Cholecalciferol (D-3) 1,000 UNIT (25MCG) TABLET PO SCH (10:14)
[2019-05-21] MEDS: Folic Acid 1 MG TABLET PO SCH (10:14)
[2019-05-21] MEDS: Topiramate 100 MG TABLET PO SCH (10:14)
[2019-05-21] MEDS: predniSONE 20 MG TABLET PO SCH (10:14)
[2019-05-21] MEDS: tiZANidine 4 MG TABLET PO SCH ×2 (10:15→16:29)
[2019-05-21] MEDS: Sennosides/Docusate Sodium TABLET PO SCH (10:15)
[2019-05-21] MEDS: Gabapentin 400 MG CAPSULE PO SCH (10:15)
[2019-05-21] MEDS: Insulin DETEMIR 100 UNIT/ML X5UNITS SQ SCH (10:16)
[2019-05-21] MEDS: Insulin LISPRO 300 UNITS/3 ML VIAL SQ SCH ×6 (10:17→16:30)
[2019-05-21] MEDS: Fluticasone Propionate Nasal 50 MCG/SPRAY BOTTLE NS SCH (10:18)
[2019-05-21] MEDS ORDERED: 0.9 % Sodium Chloride 500 ML ONE (14:40)
[2019-05-21] MEDS ORDERED: *HR* Midazolam HCl 2 MG/2 ML VIAL IVP ONE (14:41)
[2019-05-21] MEDS ORDERED: *HR* FentaNYL (PF) 100 MCG/2 ML VIAL IVP ONE (14:41)
[2019-05-21] MEDS ORDERED: *HR* Midazolam HCl 2 MG/2 ML VIAL ONE (14:46)
[2019-05-21] MEDS ORDERED: *HR* FentaNYL (PF) 100 MCG/2 ML VIAL ONE (14:47)
[2019-05-21 16:35] VITALS: BP 101/62
[2019-05-25 14:14] LABS: QuantiFERON Mitogen minus NIL >10.00 IU/mL
[2019-05-26 10:38] LABS: QuantiFERON NIL 0.04 IU/mL; QuantiFERON-TB Gold In-Tube NEGATIVE (Negative)
== END 2019-05-21 18:30 | disposition home or self-care (01) | DRG 682 ==
LOC: 2ANU 09:55 → EMEROOARM 09:55 → SUATTDRO 14:21 → 2ANU 15:25 → SUATTDRO 05-17 13:11
PROVIDERS: ADMIT Internal Medicine Nephrology; ATTEND Internal Medicine

== ENCOUNTER 2019-06-18 12:19 | Observation (INO) ==
[2019-06-18] MEDS ORDERED: Furosemide 40 MG/4 ML VIAL IVP ONE (12:26)
[2019-06-18] MEDS ORDERED: Nitroglycerin 25 MG/250 ML INFUS..BTL IVC SCH (12:30)
[2019-06-18] MEDS ORDERED: *HR* FentaNYL (PF) 100 MCG/2 ML VIAL IVP ONE ×2 (12:40→13:51)
[2019-06-18 12:41] LABS: Basophils # 0.1 K/mcL (0.0-0.2); Basophils % 0.5 %; Hematocrit 35.5 % (35.3-44.9); Immature Granulocytes % 4.5 % (0-4); Lymphocytes # 2.3 K/mcL (0.6-4.6); Lymphocytes % 22.6 %; Mean Corpuscular HGB Conc 33.8 g/dL (31.6-35.5); Mean Corpuscular Hemoglobin 30.7 pg (28.0-33.3); Mean Corpuscular Volume 90.8 fL (83.0-100.0); Mean Platelet Volume 10.3 fL (9.4-12.4); Monocytes # 0.7 K/mcL (0.0-1.3); Monocytes % 6.4 %; Neutrophils # 6.8 K/mcL (1.6-8.9); Platelet Count 262 K/mcL (140-400); Red Blood Count 3.91 M/mcL (3.82-4.97); Red Cell Distribution Width 12.9 % (11.5-14.5); White Blood Count 10.3 K/mcL (4.3-11.1)
[2019-06-18 13:00] LABS: BUN/Creatinine Ratio 16 (6-26); Blood Urea Nitrogen 21 mg/dL (6-20); Carbon Dioxide 21 mEq/L (23-29); Chloride 107 mEq/L (98-107); Glucose 283 mg/dL (70-105); Osmolality,Calculated 295 (280-300); Potassium 4.2 mEq/L (3.5-5.1); Sodium 136 mEq/L (136-145); eGFR For African Americans 51 (> 60); eGFR For Non-African Americans 42 (> 60)
[2019-06-18 13:01] LABS: Troponin I < 0.03 ng/mL (< 0.04)
[2019-06-18 15:01] LABS: Bilirubin,Urine Negative (Negative); Blood,Urine Small (Negative); Clarity,Urine Clear (Clear); Color,Urine Yellow (Yellow); Glucose,Urine (UA) 100 mg/dL (Normal); Ketones,Urine Negative (Negative); Leukocyte Esterase,Urine Negative (Negative); Nitrite,Urine Negative (Negative); Protein,Urine 100 mg/dL (Neg-Trace); Urobilinogen,Urine Normal (Normal)
[2019-06-18 15:04] LABS: Bacteria,Urine None Seen per hpf (None-Few); Hyaline Casts,Urine None Seen per lpf (None-Few); RBC,Urine 0-3 per hpf (0-3); Squamous Epithelial Cell,Urine Many per lpf (None-Few); WBC,Urine 0-3 per hpf (0-3)
[2019-06-18] MEDS ORDERED: Aspirin 81 MG TAB.CHEW PO STA (15:12)
[2019-06-18 15:32] LABS: Albumin 4.2 g/dL (3.5-5.7); Albumin/Globulin Ratio 1.6 (1.1-2.2); Bilirubin,Direct 0.1 mg/dL (0.0-0.2); Bilirubin,Indirect 0.2 mg/dL (0.0-1.2); Bilirubin,Total 0.3 mg/dL (0.3-1.0); Globulin 2.6 g/dL (2.4-3.5); Total Protein 6.8 g/dL (6.4-8.9)
[2019-06-18] MEDS ORDERED: *HR* HYDROmorphone (PF) 1 MG/ML SYRINGE IVP ONE (15:56)
[2019-06-18] MEDS ORDERED: Naloxone 0.4 MG/ML INJ IVP PRN (17:01)
[2019-06-18] MEDS: predniSONE 20 MG TABLET PO SCH (18:12)
[2019-06-18] MEDS: Gabapentin 400 MG CAPSULE PO SCH (21:24)
[2019-06-18] MEDS: Insulin DETEMIR 100 UNIT/ML X5UNITS SQ SCH (21:24)
[2019-06-19 06:34] LABS: Basophils % 0.5 %; Hematocrit 31.6 % (35.3-44.9); Hemoglobin 10.6 g/dL (11.5-15.4); Immature Granulocytes % 4.2 % (0-4); Lymphocytes # 1.6 K/mcL (0.6-4.6); Lymphocytes % 18.2 %; Mean Corpuscular HGB Conc 33.5 g/dL (31.6-35.5); Mean Corpuscular Hemoglobin 30.6 pg (28.0-33.3); Mean Corpuscular Volume 91.3 fL (83.0-100.0); Mean Platelet Volume 10.7 fL (9.4-12.4); Monocytes # 0.5 K/mcL (0.0-1.3); Neutrophils # 6.2 K/mcL (1.6-8.9); Platelet Count 235 K/mcL (140-400); Red Blood Count 3.46 M/mcL (3.82-4.97); Red Cell Distribution Width 12.9 % (11.5-14.5); Segmented Neutrophils % 71.1 %; White Blood Count 8.6 K/mcL (4.3-11.1)
[2019-06-19 06:55] LABS: Albumin 3.8 g/dL (3.5-5.7); Albumin/Globulin Ratio 1.5 (1.1-2.2); Bilirubin,Direct 0.1 mg/dL (0.0-0.2); Bilirubin,Indirect 0.2 mg/dL (0.0-1.2); Bilirubin,Total 0.3 mg/dL (0.3-1.0); Globulin 2.6 g/dL (2.4-3.5); Total Protein 6.4 g/dL (6.4-8.9)
[2019-06-19 06:57] LABS: Calcium 9.3 mg/dL (8.6-10.3); Potassium 4.2 mEq/L (3.5-5.1)
[2019-06-19 06:59] LABS: Creatine Kinase 34 Units/L (30-223); Troponin I < 0.03 ng/mL (< 0.04)
[2019-06-19 07:30] LABS: Hepatitis B Surface Antigen Nonreactive (Nonreactive)
[2019-06-19 07:58] LABS: Hepatitis C Virus Antibody Nonreactive (Nonreactive)
[2019-06-19 07:59] LABS: Hepatitis B Core IgM Nonreactive (Nonreactive)
[2019-06-19 08:00] LABS: Hepatitis A Antibody IgM Nonreactive (Nonreactive)
[2019-06-19] MEDS ORDERED: Furosemide 40 MG/4 ML VIAL IVP ONE (08:20)
[2019-06-19 09:24] LABS: Lipase 31 Units/L (11-82)
[2019-06-19] MEDS: Gabapentin 400 MG CAPSULE PO SCH ×2 (09:28→22:39)
[2019-06-19] MEDS: Aspirin Enteric Coated 81 MG Tablet PO SCH (09:29)
[2019-06-19] MEDS: predniSONE 20 MG TABLET PO SCH (09:29)
[2019-06-19] MEDS: Insulin LISPRO 300 UNITS/3 ML VIAL SQ SCH ×3 (09:38→16:28)
[2019-06-19] MEDS: Topiramate 25 MG TABLET PO SCH ×2 (12:00→22:39)
[2019-06-19] MEDS: Fenofibrate 54 MG TABLET PO SCH (12:00)
[2019-06-19] MEDS: diazePAM 5 MG TABLET PO PRN ×3 (12:01→22:39)
[2019-06-19] MEDS: Folic Acid 1 MG TABLET PO SCH (12:01)
[2019-06-19] MEDS ORDERED: Lactulose Oral Soln 20 GM/30 ML UDC PO ONE (13:43)
[2019-06-19] MEDS: Insulin DETEMIR 100 UNIT/ML X5UNITS SQ SCH (22:40)
[2019-06-19] MEDS ORDERED: hydrOXYzine pamoate 25 MG CAPSULE PO ONE (22:57)
[2019-06-20 04:54] LABS: Calcium 9.5 mg/dL (8.6-10.3); Potassium 3.9 mEq/L (3.5-5.1)
[2019-06-20] MEDS: diazePAM 5 MG TABLET PO PRN (06:02)
[2019-06-20 06:55] VITALS: BP 113/69
[2019-06-20] MEDS: Aspirin Enteric Coated 81 MG Tablet PO SCH (08:19)
[2019-06-20] MEDS: predniSONE 20 MG TABLET PO SCH (08:19)
[2019-06-20] MEDS: Gabapentin 400 MG CAPSULE PO SCH (08:19)
[2019-06-20] MEDS: Fenofibrate 54 MG TABLET PO SCH (08:19)
[2019-06-20] MEDS: Topiramate 25 MG TABLET PO SCH (08:19)
[2019-06-20] MEDS: Folic Acid 1 MG TABLET PO SCH (08:19)
[2019-06-20] MEDS: Insulin LISPRO 300 UNITS/3 ML VIAL SQ SCH ×2 (08:20→12:23)
== END 2019-06-20 14:10 | disposition home or self-care (01) ==
LOC: 2NENU 12:19 → EMEROOARM 12:19 → SUATTDRO 16:49 → 2NENU 17:30
PROVIDERS: ADMIT Internal Medicine; ATTEND Internal Medicine